=== PATIENT | male | born 1980 | race Caucasian/White ===

== ENCOUNTER 2016-11-04 22:10 | Emergency (ER) | payer BC ==
[2016-11-04 22:25] VITALS: BP 136/92
--- NOTE | 2016-11-05 12:44 | EKG REPORT ---
SEVERITY:- NORMAL ECG - SINUS RHYTHM : Confirmed by: Iwona Reza MD 05-Nov-2016 12:43:43
== END 2016-11-04 23:52 | disposition left against medical advice (07) ==
LOC: ER 22:10
DX: Z53.9 Procedure and treatment not carried out, unspecified reason (principal); R07.9 Chest pain, unspecified
CPT/HCPCS: 93005; 93010

== ENCOUNTER 2017-07-29 19:54 | Emergency (ER) | payer BC, OTHER ==
[2017-07-29 20:36] VITALS: BP 149/97
[2017-07-29] MEDS ORDERED: ONDANSETRON HCL INJ/PF 4 MG/2 ML SDV IV ONE (21:04)
[2017-07-29] MEDS ORDERED: DICYCLOMINE HCL INJ 20 MG/2 ML AMPULE IM STA (21:04)
[2017-07-29] MEDS ORDERED: KETOROLAC TROMETHAMINE INJ/PF 30 MG/1 ML SDV IV ONE (21:04)
--- NOTE | 2017-07-29 21:07 | ER Document Report ---
ED GI/ - General Chief Complaint: Flu Symptoms Stated Complaint: FLU SYMPTOMS Time Seen by Provider: 07/29/17 20:50 Mode of Arrival: Ambulatory Information source: Patient TRAVEL OUTSIDE OF THE [place] IN LAST 30 DAYS: No - HPI Patient complains to provider of: Diarrhea, Vomiting Onset: This morning Notes: 07/29/17 21:05 The patient is here with complaints of nausea, vomiting, diarrhea that started at approximately 4:00 this morning. States that he has had too many bowel movements and vomiting episodes to count. No blood in his vomit or stool. He has had some body aches and chills. He denies any dysuria or hematuria. He denies fever. He has had prior cholecystectomy and has a history of diverticulitis. He denies any known sick contacts, travel outside the [place], recent antibiotic use. He denies any known specific bad food intake. He denies any chest pain or shortness of breath. No rash. He has occasional abdominal cramping, but denies any constant abdominal pain. Nothing makes his symptoms better or worse. He denies any other complaints. - Related Data Allergies/Adverse Reactions: Penicillins Allergy (Verified 11/17/13 11:02) Past Medical History - Social History Smoking Status: Former Smoker Chew tobacco use (# tins/day): No Frequency of alcohol use: Occasional Drug Abuse: None Family History: Reviewed & Not Pertinent Patient has suicidal ideation: No Patient has homicidal ideation: No - Past Medical History Cardiac Medical History: Reports: Hx Hypercholesterolemia, Hx Hypertension Pulmonary Medical History: Reports: Hx Asthma, Hx COPD Renal/ Medical History: Denies: Hx Peritoneal Dialysis Psychiatric Medical History: Denies: Hx Depression Past Surgical History: Reports: Hx Cholecystectomy - Immunizations Hx Diphtheria, Pertussis, Tetanus Vaccination: Yes Review of Systems - Review of Systems -: Yes All other systems reviewed and negative Physical Exam - Vital signs Vitals: Temp Pulse Resp BP Pulse Ox 98.5 F 100 16 149/97 H 97 07/29/17 20:32 07/29/17 20:32 07/29/17 20:32 07/29/17 20:32 07/29/17 20:32 - Notes Notes: GENERAL: alert, cooperative, nontoxic, no distress. HEAD: normocephalic, atraumatic EYES: conjunctiva pink without discharge, no external redness or swelling. EARS: no external swelling, no external redness NOSE: atraumatic, no external swelling MOUTH/THROAT: mucous membranes moist and pink, posterior pharynx without erythema, swelling, exudate. No trismus or drooling. NECK: soft, supple, full range of motion, no meningismus. CHEST: no distress, lungs clear and equal throughout. No wheezing, rales, rhonchi. CARDIAC: regular rate and rhythm, no murmur, normal capillary refill, normal pulses. No peripheral edema noted. ABDOMEN: Soft, nontender. No rebound tenderness or guarding. No mass. BACK: full range of motion, no CVA tenderness. EXTREMITIES: full range of motion of all extremities. No redness, no swelling. NEURO: alert and oriented x 3, no focal deficits, full range of motion of all extremities. PYSCH: appropriate mood, affect. Patient is cooperative. SKIN: pink, warm, dry, no rash. Course - Re-evaluation Re-evalutation: 07/29/17 23:52 The patient is nontoxic appearing with stable vitals. The patient has had nausea vomiting diarrhea with body aches. He has no abdominal tenderness on exam. No blood in his stool. No cough or sore throat. He was given IV fluids , Toradol, Zofran, Bentyl in the emergency department. He has had no vomiting here. Lab work is all unremarkable aside from a nonspecifically elevated white blood cell count of 16-1/2. On reexam he continues to have no abdominal tenderness. The most likely source of this is viral gastroenteritis. He did explain that if there is other possibilities and that if his pain worsens he develops focal abdominal tenderness is persistent vomiting significant high fevers or gets worse in any way that he should be reevaluated immediately for further evaluation. Due to the fact that he has no abdominal tenderness on exam at this time, I do not believe that a CT scan is required today. The patient is noted to have elevated blood pressure during today's emergency department visit. The patient was informed of this finding. The patient was instructed that this may be related to pre-hypertension and requires further evaluation with a primary care provider. The patient has no hypertensive symptoms at this time. The patient's emergency department workup and current diagnosis were explained to the patient and or family. Follow-up instructions were provided. Medications if prescribed were discussed. Instructions for when to return to the emergency department including specific worrisome symptoms were discussed with the patient and/or family. - Vital Signs Vital signs: Temp Pulse Resp BP Pulse Ox 98.5 F 100 16 149/97 H 97 07/29/17 20:32 07/29/17 20:32 07/29/17 20:32 07/29/17 20:32 07/29/17 20:32 - Laboratory Result Diagrams: 07/29/17 21:50 07/29/17 22:28 Laboratory results interpreted by me: 07/29/17 21:50 WBC 16.4 H RBC 5.61 H Hgb 17.4 H Hct 51.2 H Seg Neutrophils % 82.6 H Lymphocytes % 10.4 L Absolute Neutrophils 13.6 H Discharge - Discharge Clinical Impression: Nausea vomiting and diarrhea Condition: Stable Disposition: HOME, SELF-CARE Instructions: Diarrhea, Nonspecific ([facility]), Vomiting ([facility]), Viral Syndrome ([facility]) , Intravenous (IV) Fluids ([facility]) Additional Instructions: Take medications as prescribed. Take Tylenol and Motrin as needed for pain or fever. Follow-up if not better in 3-5 days, sooner for increasing pain, high fever, persistent vomiting, blood in his vomit or stool, or for any further concerns. He develops tenderness when pushing on his abdomen, he should be reevaluated. Your blood pressure was elevated during today's visit. Have this rechecked with your doctor. Prescriptions: Dicyclomine HCl [Bentyl 20 mg Tablet] 20 mg PO QID #20 tablet Ondansetron HCl [Zofran 4 mg Tablet] 1 - 2 tab PO Q4H PRN #10 tablet PRN Reason: Forms: Elevated Blood Pressure, Smoking Cessation Education Referrals: [facility] [Provider Group] - Follow up as needed
[2017-07-29] MEDS ORDERED: NORMAL SALINE 1000 ML 1,000 ML IV ONE (21:59)
[2017-07-29 22:09] LABS: ABSOLUTE BASOPHILS # (AUTO) 0.1 10^3/uL (0.0-0.2); ABSOLUTE EOSINOPHILS # (AUTO) 0.1 10^3/uL (0.0-0.6); ABSOLUTE LYMPHOCYTES (AUTO) 1.7 10^3/uL (0.5-4.7); ABSOLUTE MONOCYTES (AUTO) 0.9 10^3/uL (0.1-1.4); ABSOLUTE NEUT (AUTO) 13.6 10^3/uL (1.7-8.2); BASOPHILS % (AUTO) 0.7 % (0-2); EOSINOPHILS % (AUTO) 0.8 % (0-6); HEMATOCRIT 51.2 % (37.9-51.0); HEMOGLOBIN 17.4 g/dL (13.5-17.0); LYMPHOCYTES % (AUTO) 10.4 % (13-45); MEAN CORPUSCULAR HEMOGLOBIN 31.1 pg (27.0-33.4); MEAN CORPUSCULAR HGB CONC 34.1 g/dL (32.0-36.0); MEAN CORPUSCULAR VOLUME 91 fl (80-97); MONOCYTES % (AUTO) 5.5 % (3-13); PLATELET COUNT 382 10^3/uL (150-450); RED BLOOD COUNT 5.61 10^6/uL (4.35-5.55); RED CELL DISTRIBUTION WIDTH 13.5 % (11.5-14.0); SEGMENTED NEUTROPHILS % (AUTO) 82.6 % (42-78); TOTAL CELLS COUNTED % (AUTO) 100 %; WHITE BLOOD COUNT 16.4 10^3/uL (4.0-10.5)
[2017-07-29 23:05] LABS: ALANINE AMINOTRANSFERASE 58 U/L (21-72); ALBUMIN 4.4 g/dL (3.5-5.0); ALKALINE PHOSPHATASE 87 U/L (38-126); ANION GAP 13 (5-19); ASPARTATE AMINO TRANSFERASE 27 U/L (17-59); BILIRUBIN,DIRECT 0.2 mg/dL (0.0-0.4); BILIRUBIN,TOTAL 0.3 mg/dL (0.2-1.3); BLOOD UREA NITROGEN 13 mg/dL (7-20); CALCIUM 9.6 mg/dL (8.4-10.2); CARBON DIOXIDE 24 mmol/L (22-30); CHLORIDE 103 mmol/L (98-107); GLUCOSE 101 mg/dL (75-110); POTASSIUM 4.1 mmol/L (3.6-5.0); SODIUM 139.8 mmol/L (137-145); TOTAL PROTEIN 6.8 g/dL (6.3-8.2)
[2017-07-29 23:37] LABS: APPEARANCE,URINE CLEAR; BILIRUBIN,URINE NEGATIVE (NEGATIVE); COLOR,URINE YELLOW; GLUCOSE, URINE NEGATIVE (NEGATIVE); KETONES,URINE NEGATIVE (NEGATIVE); LEUKOCYTE ESTERASE,URINE NEGATIVE (NEGATIVE); NITRITE,URINE NEGATIVE (NEGATIVE); PROTEIN,URINE NEGATIVE (NEGATIVE); URINE SPECIFIC GRAVITY 1.029; UROBILINOGEN,URINE NEGATIVE mg/dL (<2.0)
== END 2017-07-30 00:07 | disposition home or self-care (01) ==
LOC: ER 19:54
DX: R11.2 Nausea with vomiting, unspecified (principal); R19.7 Diarrhea, unspecified; R10.9 Unspecified abdominal pain; R68.83 Chills (without fever); D72.829 Elevated white blood cell count, unspecified; I10 Essential (primary) hypertension; J44.9 Chronic obstructive pulmonary disease, unspecified; Z87.19 Personal history of other diseases of the digestive system; Z91.49 Other personal history of psychological trauma, not elsewhere classified; Z88.0 Allergy status to penicillin; Z87.891 Personal history of nicotine dependence
CPT/HCPCS: 99283; 96372; 96361; 96374; 96375; 36415; 83690; 85025; 80053; 81001; J0500; J1885; J2405; J7030

== ENCOUNTER 2017-09-08 18:26 | Emergency (ER) | payer OTHER ==
--- NOTE | 2017-09-08 19:46 | ER Document Report ---
ED General - General Chief Complaint: Toothache Stated Complaint: JAW PAIN Time Seen by Provider: 09/08/17 19:45 Mode of Arrival: Ambulatory Information source: Patient, Friend TRAVEL OUTSIDE OF THE [place] IN LAST 30 DAYS: No - HPI Notes: 37-year-old male presents today with complaints of right lower dental pain x 1 day, states a piece of his tooth came off. pain is 6/10, achy and throbbing with eating. denies any fevers or chills. denies cp, sob, n/v/d, blurred vision , double vision. does have a dentist appointment this upcoming Friday better with advil, worse with eating hard foods. reports cold sensitivity. Non- smoker. no throat swelling and difficulty tolerating secretions. Denies fevers , chills, chest pain,palpitations, shortness of breath, dyspnea, nausea, vomiting, diarrhea, abdominal pain, hematuria,blurred vision, double vision, loss of vision, speech changes, LH, dizziness, syncope, headaches, wheezing, ST , URI, neck pain, weakness, bowel or bladder dysfunction, saddle anesthesia, numbness or tingling in bilateral upper or lower extremities equally, muscle paralysis, weakness in bilateral upper or lower extremities equally or rash. Denies IV drug use. - Related Data Allergies/Adverse Reactions: Penicillins Allergy (Verified 11/17/13 11:02) Past Medical History - General Information source: Patient - Social History Smoking Status: Never Smoker Family History: Reviewed & Not Pertinent - Past Medical History Cardiac Medical History: Reports: Hx Hypercholesterolemia, Hx Hypertension Pulmonary Medical History: Reports: Hx Asthma, Hx COPD Renal/ Medical History: Denies: Hx Peritoneal Dialysis Psychiatric Medical History: Denies: Hx Depression Past Surgical History: Reports: Hx Cholecystectomy - Immunizations Hx Diphtheria, Pertussis, Tetanus Vaccination: Yes Review of Systems - Review of Systems Constitutional: No symptoms reported EENT: See HPI Cardiovascular: No symptoms reported Respiratory: No symptoms reported Gastrointestinal: No symptoms reported Genitourinary: No symptoms reported Male Genitourinary: No symptoms reported Musculoskeletal: No symptoms reported Skin: No symptoms reported Hematologic/Lymphatic: No symptoms reported Neurological/Psychological: No symptoms reported Physical Exam - Vital signs Vitals: Temp Pulse Resp BP Pulse Ox 97.6 F 61 16 156/97 H 96 09/08/17 18:52 09/08/17 18:52 09/08/17 18:52 09/08/17 18:52 09/08/17 18:52 - Notes Notes: PHYSICAL EXAMINATION: GENERAL: Well-appearing, well-nourished and in no acute distress. HEAD: Atraumatic, normocephalic. EYES: Pupils equal round and reactive to light, extraocular movements intact, sclera anicteric, conjunctiva are normal. ENT: Nares patent, oropharynx clear without exudates. Moist mucous membranes. # 26 gingiva with swelling, erythema and~ induration. No drainage or open wounds. No fluctuance. No facial swelling. Poor oral dentition, right lower jaw with extensive dental caries, no definite swelling or effusion. NECK: Normal range of motion, supple without lymphadenopathy LUNGS: Breath sounds clear to auscultation bilaterally and equal. No wheezes rales or rhonchi. HEART: Regular rate and rhythm without murmurs ABDOMEN: Soft, nontender, nondistended abdomen. No guarding, no rebound. No masses appreciated. Musculoskeletal: Normal range of motion, no pitting or edema. No cyanosis. NEUROLOGICAL: Cranial nerves grossly intact. Normal speech, normal gait. Normal sensory, motor exams PSYCH: Normal mood, normal affect. SKIN: Warm, Dry, normal turgor, no rashes or lesions noted. Course - Re-evaluation Re-evalutation: 09/08/17 19:59 Healthy, afebrile male was vital signs are stable is here for evaluation for toothache. We will give him Toradol IM now for pain, will start him on oral clindamycin for infection, patient does have a dental appointment this Friday Warm compress to face 20 minutes on 20 minutes off several times a day. Take meloxicam as directed daily with food, do not take any other NSAIDs while taking meloxicam. At this time will discharge with return precautions and follow-up recommendations. Verbal discharge instructions given a the bedside and opportunity for questions given. Medication warnings reviewed. Patient is in agreement with this plan and has verbalized understanding of return precautions and the need for primary care follow-up in the next 24-72 hours. After performing a Medical Screening Examination, I estimate there is LOW risk for a DEEP SPACE INFECTION (e.g., COREEN'S ANGINA OR RETROPHARYNGEAL ABSCESS), MENINGITIS, INTRACRANIAL HEMORRHAGE, or AIRWAY COMPROMISE, thus I consider the discharge disposition reasonable. Also, there is no evidence or peritonitis, sepsis, or toxicity. I have reevaluated this patient multiple times and no significant life threatening changes are noted. The patient and I have discussed the diagnosis and risks, and we agree with discharging home with close follow-up with the understanding that symptoms and presentations can change. We also discussed returning to the Emergency Department immediately if new or worsening symptoms occur. We have discussed the symptoms which are most concerning (e.g., changing or worsening pain, trouble swallowing or breathing, neck stiffness or fever) that necessitate immediate return. - Vital Signs Vital signs: Temp Pulse Resp BP Pulse Ox 97.6 F 61 16 156/97 H 96 09/08/17 18:52 09/08/17 18:52 09/08/17 18:52 09/08/17 18:52 09/08/17 18:52 Discharge - Discharge Clinical Impression: Dental caries Condition: Good Disposition: HOME, SELF-CARE Instructions: [facility], Clindamycin ([facility]), Toothache ([facility]), Dentist Prescriptions: Clindamycin HCl 300 mg PO Q6H #28 capsule Meloxicam 7.5 mg PO DAILY #5 tablet Referrals: KJ ZULETA MD [ACTIVE STAFF] - Follow up as needed
[2017-09-08] MEDS ORDERED: CLINDAMYCIN HCL 150 MG CAPSULE PO ONE (19:55)
[2017-09-08] MEDS ORDERED: KETOROLAC TROMETHAMINE 60 MG/2 ML SDV IM ONE (19:55)
[2017-09-08 20:25] VITALS: BP 149/83
== END 2017-09-08 20:32 | disposition home or self-care (01) ==
LOC: ER 18:26
DX: K02.9 Dental caries, unspecified (principal); K08.89 Other specified disorders of teeth and supporting structures; I10 Essential (primary) hypertension; J44.9 Chronic obstructive pulmonary disease, unspecified; Z88.0 Allergy status to penicillin
CPT/HCPCS: 99282; 96372; J1885

== ENCOUNTER 2018-06-11 17:49 | Emergency (ER) | payer OTHER ==
--- NOTE | 2018-06-11 20:05 | ER Document Report ---
ED Medical Screen (RME) - General Chief Complaint: Chest Pain Stated Complaint: CHEST PAIN Time Seen by Provider: 06/11/18 19:53 Mode of Arrival: Ambulatory Information source: Patient Notes: This is a 37-year-old man with a recent stress test showing fixed defect. Patient was recently placed on isosorbide, alprazolam (for anxiety) and aspirin. Patient states he was usual state of health today when he took his first dose of isosorbide. Patient states that since that time, he is not felt right. He complains of weakness, sharp chest pain, chills. He denies any sick contacts. This is the first time he took the medicine. He denies any Cialis/Viagra like medicines. TRAVEL OUTSIDE OF THE [place] IN LAST 30 DAYS: No - Related Data Allergies/Adverse Reactions: Penicillins Allergy (Verified 06/11/18 19:53) Past Medical History - Past Medical History Cardiac Medical History: Reports: Hx Hypercholesterolemia, Hx Hypertension Pulmonary Medical History: Reports: Hx Asthma, Hx COPD Renal/ Medical History: Denies: Hx Peritoneal Dialysis Psychiatric Medical History: Denies: Hx Depression Past Surgical History: Reports: Hx Cholecystectomy - Immunizations Hx Diphtheria, Pertussis, Tetanus Vaccination: Yes Physical Exam - Vital signs Vitals: Temp Pulse Resp BP Pulse Ox 99.8 F 102 H 17 132/81 H 97 06/11/18 18:15 06/11/18 18:15 06/11/18 18:15 06/11/18 18:15 06/11/18 18:15 Course - Vital Signs Vital signs: Temp Pulse Resp BP Pulse Ox 99.8 F 102 H 17 132/81 H 97 06/11/18 18:15 06/11/18 18:15 06/11/18 18:15 06/11/18 18:15 06/11/18 18:15
--- NOTE | 2018-06-11 20:29 | RADIOLOGY REPORT (SQ) ---
EXAM DESCRIPTION: XR CHEST 2 VIEWS COMPLETED DATE/TME: 06/11/2018 20:03 CLINICAL HISTORY: 37 years, Male, cp Compared to 09/01/2015. FINDINGS: The heart is not enlarged. No consolidation or pleural effusion. No pulmonary edema or pneumothorax. IMPRESSION: No acute disease.
[2018-06-11 20:51] LABS: HEMATOCRIT 48.5 % (37.9-51.0); HEMOGLOBIN 16.8 g/dL (13.5-17.0); MEAN CORPUSCULAR HEMOGLOBIN 31.2 pg (27.0-33.4); MEAN CORPUSCULAR HGB CONC 34.7 g/dL (32.0-36.0); MEAN CORPUSCULAR VOLUME 90 fl (80-97); PLATELET COUNT 382 10^3/uL (150-450); RED BLOOD COUNT 5.39 10^6/uL (4.35-5.55); RED CELL DISTRIBUTION WIDTH 13.5 % (11.5-14.0)
[2018-06-11 20:55] LABS: A TYPE INFLUENZA AG NEGATIVE (NEGATIVE); ALANINE AMINOTRANSFERASE 35 U/L (21-72); ALBUMIN 4.6 g/dL (3.5-5.0); ALKALINE PHOSPHATASE 98 U/L (38-126); ANION GAP 11 (5-19); ASPARTATE AMINO TRANSFERASE 20 U/L (17-59); B INFLUENZA AG NEGATIVE (NEGATIVE); BILIRUBIN,DIRECT 0.3 mg/dL (0.0-0.4); BILIRUBIN,TOTAL 0.7 mg/dL (0.2-1.3); BLOOD UREA NITROGEN 9 mg/dL (7-20); CALCIUM 9.9 mg/dL (8.4-10.2); CARBON DIOXIDE 25 mmol/L (22-30); CHLORIDE 103 mmol/L (98-107); CREATINE KINASE 60 U/L (55-170); GLUCOSE 102 mg/dL (75-110); POTASSIUM 4.2 mmol/L (3.6-5.0); SODIUM 139.3 mmol/L (137-145); TOTAL PROTEIN 7.5 g/dL (6.3-8.2)
[2018-06-11 21:07] LABS: ABSOLUTE LYMPHOCYTES# (MANUAL) 3.5 10^3/uL (0.5-4.7); ABSOLUTE MONOCYTES # (MANUAL) 1.8 10^3/uL (0.1-1.4); ABSOLUTE NEUTROPHILS# (MANUAL) 16.7 10^3/uL (1.7-8.2); BASOPHILS % (MANUAL) 0 % (0-2); EOSINOPHILS % (MANUAL) 0 % (0-6); LYMPHOCYTES % (MANUAL) 15 % (13-45); MONOCYTES % (MANUAL) 8 % (3-13); SEGMENTED NEUTROPHILS % (MAN) 76 % (42-78); TOTAL CELLS COUNTED 100
[2018-06-11 21:08] LABS: CREATINE KINASE MB 0.24 ng/mL (<4.55)
--- NOTE | 2018-06-11 21:09 | EKG REPORT ---
SEVERITY:- NORMAL ECG - SINUS RHYTHM : Confirmed by: Iwona Reza MD 11-Jun-2018 21:08:28
[2018-06-11 21:14] LABS: OVALOCYTES SLIGHT; PLATELET COMMENT ADEQUATE; PLATELET LARGE PRESENT; POIKILOCYTOSIS SLIGHT; TOXIC GRANULATION SLIGHT; TROPONIN I < 0.012 ng/mL
[2018-06-11] MEDS ORDERED: NORMAL SALINE 1000 ML 1,000 ML IV ONE (22:25)
[2018-06-11] MEDS ORDERED: KETOROLAC TROMETHAMINE INJ/PF 30 MG/1 ML SDV IV ONE (22:26)
[2018-06-11] MEDS ORDERED: ACETAMINOPHEN 325 MG TABLET PO ONE (22:26)
[2018-06-11] MEDS ORDERED: METOCLOPRAMIDE HCL INJ/PF 10 MG/2 ML SDV IV ONE (22:26)
--- NOTE | 2018-06-11 22:29 | ER Document Report ---
ED General - General Chief Complaint: Chest Pain Stated Complaint: CHEST PAIN Time Seen by Provider: 06/11/18 19:53 Primary Care Provider: TONY CRONIN MD [Primary Care Provider] - Follow up tomorrow Mode of Arrival: Ambulatory Notes: Patient is a 37-year-old male without chronic medical problems presents complaining of acute onset of body aches, chest discomfort, headache and feeling generally unwell. Patient states that his symptoms started 1 hour after taking a dose of isosorbide mononitrate. He states that he was unaware that he had a fever until presented to the emergency department. Since onset of his symptoms nothing is improved or worsen his symptoms. No known sick contacts. Has not seen his general physician regarding today's concerns. Denies any history of similar symptoms in the past. His body aches are described as an aching, cramping, diffuse body pain. TRAVEL OUTSIDE OF THE [place] IN LAST 30 DAYS: No - Related Data Allergies/Adverse Reactions: Penicillins Allergy (Verified 06/11/18 19:53) Past Medical History - General Information source: Patient - Social History Smoking Status: Former Smoker Frequency of alcohol use: None Drug Abuse: None Lives with: Spouse/Significant other Family History: Reviewed & Not Pertinent Patient has suicidal ideation: No Patient has homicidal ideation: No - Past Medical History Cardiac Medical History: Reports: Hx Hypercholesterolemia, Hx Hypertension Pulmonary Medical History: Reports: Hx Asthma, Hx COPD Renal/ Medical History: Denies: Hx Peritoneal Dialysis Psychiatric Medical History: Denies: Hx Depression Past Surgical History: Reports: Hx Cholecystectomy - Immunizations Hx Diphtheria, Pertussis, Tetanus Vaccination: Yes Review of Systems - Review of Systems Notes: Constitutional: Positive for fever. HENT: Negative for sore throat. Eyes: Negative for visual changes. Cardiovascular: Negative for chest pain. Respiratory: Negative for shortness of breath. Gastrointestinal: Negative for abdominal pain, vomiting or diarrhea. Genitourinary: Positive for dysuria. Musculoskeletal: Negative for back pain. Skin: Negative for rash. Neurological: Positive for headache 10 point ROS negative except as marked above and in HPI. Physical Exam - Vital signs Vitals: Temp Pulse Resp BP Pulse Ox 99.8 F 102 H 17 132/81 H 97 06/11/18 18:15 06/11/18 18:15 06/11/18 18:15 06/11/18 18:15 06/11/18 18:15 Interpretation: Tachycardic Notes: PHYSICAL EXAMINATION: GENERAL: Appears mildly unwell but in no acute distress HEAD: Atraumatic, normocephalic. EYES: Pupils equal round and reactive to light, extraocular movements intact, sclera anicteric, conjunctiva are normal. ENT: nares patent, oropharynx clear without exudates. Moderately dry mucous membranes. NECK: Normal range of motion, no meningismus, supple without lymphadenopathy LUNGS: Breath sounds clear to auscultation bilaterally and equal. No wheezes rales or rhonchi. HEART: Regular tachycardia without murmurs ABDOMEN: Soft, nontender, normoactive bowel sounds. No guarding, no rebound. No masses appreciated. EXTREMITIES: Normal range of motion, no pitting or edema. No cyanosis. NEUROLOGICAL: No focal neurological deficits. Moves all extremities spontaneously and on command. PSYCH: Normal mood, normal affect. SKIN: Warm, Dry, normal turgor, no rashes or lesions noted. Course - Re-evaluation Re-evalutation: 06/11/18 22:26 Patient presents with an acute onset of body aches, chest discomfort, headache, and feeling generally unwell at home consistent with a flulike illness although our flu test here is negative. Patient has not started having a mild cough since being here in the emergency department. Chest patient likewise denies any urinary symptoms. Chest x-ray is clear without any evidence of an acute pneumonia. Urinalysis without any evidence of a pyelonephritis but does show pyuria and trace bacteria. Patient does not have any focal abdominal tenderness to suggest an acute biliary pathology, acute appendicitis, acute mesenteric ischemia, bowel obstruction, bowel, or any other life-threatening acute intra- abdominal pathology as the etiology of the fever and additional symptoms today. Patient does complain of a headache. Although I have a low clinical suspicion for an acute onset bacterial meningitis cannot be entirely excluded in this setting particular given leukocytosis without lumbar puncture. I have advised the patient as well as his at the bedside of this concern. I have reviewed with him that the likelihood of bacterial meningitis is low but not 0% and the only way that we could really exclude this diagnosis is with a lumbar puncture. The patient has currently deferred this procedure and states that he would like to wait and see how he feels until he has received medications to reduce his fever. 06/12/18 00:21 The patient states that he feels markedly improved after receiving IV fluids. His heart rate has normalized, currently 89. He denies any current headache. Bedside echocardiogram without any evidence of pericardial effusion. I have again had a risks and benefits conversation with the patient and his about proceeding forward with a lumbar puncture. We have again reviewed that although the probability of an acute bacterial meningitis or viral encephalitis is quite low it is not 0% and we cannot definitively exclude this without obtaining a lumbar puncture. We did review the possible risks of the procedure including bleeding, infection, post lumbar puncture headache. He also reviewed that failure to diagnose or delayed diagnosis of a CLINICAL ASSESSMENT MANAGER infection could result in much worse prognosis up to and including . After reviewing the risks, benefits and alternative considerations the patient and his have declined lumbar puncture. The patient has capacity. This does seem to be a reasonable decision given the absence of any symptoms currently in the overall low probability of this diagnosis. The patient will be started on antibiotics given his possible urinary tract infection and a urinalysis has been sent. At this time will discharge with return precautions and follow-up recommendations. Verbal discharge instructions given a the bedside and opportunity for questions given. Medication warnings reviewed. Patient is in agreement with this plan and has verbalized understanding of return precautions and the need for primary care follow-up in the next 24-72 hours. - Vital Signs Vital signs: Temp Pulse Resp BP Pulse Ox 98.1 F 85 18 127/60 H 99 06/12/18 02:09 06/12/18 02:09 06/12/18 02:09 06/12/18 02:09 06/12/18 02:09 - Laboratory Result Diagrams: 06/11/18 20:25 06/11/18 20:25 Laboratory results interpreted by me: 06/11/18 06/11/18 20:25 21:16 WBC 22.0 H Abs Neuts (Manual) 16.7 H Abs Monocytes (Manual) 1.8 H Ur Leukocyte Esterase TRACE H - Diagnostic Test Radiology reviewed: Image reviewed, Reports reviewed Radiology results interpreted by me: 06/11/18 22:29 Chest x-ray: No acute infiltrate or pneumothorax Discharge - Discharge Clinical Impression: Generalized body aches Elevated WBC count Qualifiers: Leukocytosis type: unspecified Qualified Code(s): D72.829 - Elevated white blood cell count, unspecified Fever Qualifiers: Fever type: unspecified Qualified Code(s): R50.9 - Fever, unspecified Urinary tract infection Qualifiers: Urinary tract infection type: acute pyelonephritis Qualified Code(s): N10 - Acute pyelonephritis Condition: Good Disposition: HOME, SELF-CARE Additional Instructions: You have been diagnosed with a condition called pyelonephritis which is an infection involving your kidneys and bladder. You have been given a dose of antibiotics here in the emergency department to help begin to treat this infection. Your also being sent home on antibiotics. Please start taking these later on today when you fill the prescription. Complete the course even if you feel better. Please return if you have persistent vomiting, pass out, have worsening pain, become unable to tolerate fluids, or have any other symptoms [place] t are concerning to you. Please follow-up with your primary care physician in the next 24-48 hours. Prescriptions: Cephalexin Monohydrate [Keflex 500 mg Capsule] 500 mg PO Q6H 7 Days capsule Referrals: TONY CRONIN MD [Primary Care Provider] - Follow up tomorrow
[2018-06-12 00:29] VITALS: BP 127/60
[2018-06-12 00:40] LABS: APPEARANCE,URINE CLEAR; BILIRUBIN,URINE NEGATIVE (NEGATIVE); COLOR,URINE YELLOW; GLUCOSE, URINE NEGATIVE (NEGATIVE); KETONES,URINE NEGATIVE (NEGATIVE); LEUKOCYTE ESTERASE,URINE TRACE (NEGATIVE); NITRITE,URINE NEGATIVE (NEGATIVE); PROTEIN,URINE NEGATIVE (NEGATIVE); URINE SPECIFIC GRAVITY 1.018; UROBILINOGEN,URINE NEGATIVE mg/dL (<2.0)
[2018-06-12] MEDS ORDERED: CEFTRIAXONE INJ 1000 MG VIAL IV ONE (00:57)
[2018-06-12] MEDS ORDERED: LIDOCAINE 1% INJ-PF (10 MG/ML) 30 ML SDV ONE (01:58)
== END 2018-06-12 02:10 | disposition home or self-care (01) ==
LOC: ER 17:49
DX: M79.10 Myalgia, unspecified site (principal); D72.829 Elevated white blood cell count, unspecified; R50.9 Fever, unspecified; R07.9 Chest pain, unspecified; R51 Headache; R30.0 Dysuria; Z87.891 Personal history of nicotine dependence; I10 Essential (primary) hypertension; J44.9 Chronic obstructive pulmonary disease, unspecified
CPT/HCPCS: 93005; 99285; 36415; 87040; 87086; 82553; 82550; 85025; 87088; 80053; 81001; 84484; 87186; 87804; 71046; 93010; J3490; J1885; J2765; J0696; J7030

== ENCOUNTER 2020-06-12 17:00 | Emergency (ER) | payer BC, OTHER ==
[2020-06-12] MEDS ORDERED: NORMAL SALINE 1000 ML 1,000 ML IV ONE (17:06)
[2020-06-12] MEDS ORDERED: ONDANSETRON HCL INJ/PF 4 MG/2 ML SDV IV ONE (17:08)
[2020-06-12] MEDS ORDERED: HYDROMORPHONE HCL INJ/PF 2 MG/ML AMPULE IV ONE (17:08)
--- NOTE | 2020-06-12 17:24 | ER Document Report ---
ED General - General Chief Complaint: Crush Injury Stated Complaint: CRUSH INJURY Time Seen by Provider: 06/12/20 17:01 Primary Care Provider: TONY CRONIN MD [NO LOCAL MD] - Follow up as needed TRAVEL OUTSIDE OF THE [place] IN LAST 30 DAYS: No - HPI Notes: Patient is a 39-year-old male who presents to the emergency department for evaluation. He was at work when a car fell on top of him. He complains of pain in his right arm and right chest/abdomen. He did not lose consciousness. He denies any neck or back pain. His pain is a 10 out of 10. The car was lifted off of him by coworkers. - Related Data Allergies/Adverse Reactions: Penicillins Allergy (Verified 06/12/20 17:52) Home Medications: Lisinopril Past Medical History - General Information source: Patient - Social History Smoking Status: Current Every Day Smoker Drug Abuse: None Family History: Reviewed & Not Pertinent - Past Medical History Cardiac Medical History: Reports: Hx Hypercholesterolemia, Hx Hypertension Pulmonary Medical History: Reports: Hx Asthma, Hx COPD Renal/ Medical History: Denies: Hx Peritoneal Dialysis Psychiatric Medical History: Denies: Hx Depression Past Surgical History: Reports: Hx Cholecystectomy - Immunizations Hx Diphtheria, Pertussis, Tetanus Vaccination: Yes Review of Systems - Review of Systems Constitutional: No symptoms reported EENT: No symptoms reported Cardiovascular: See HPI Respiratory: No symptoms reported Gastrointestinal: See HPI Genitourinary: No symptoms reported Musculoskeletal: See HPI Skin: No symptoms reported Neurological/Psychological: No symptoms reported Physical Exam - Vital signs Vitals: Resp Pulse Ox 12 97 06/12/20 17:01 06/12/20 17:01 - Notes Notes: Vital signs reviewed, please refer to chart. Head is normocephalic, atraumatic. Pupils equal round, reactive to light. Nares are patent without septal hematoma. No facial bone tenderness, no orbital stepoff. Oral mucosa is moist. Uvula is midline. Examination of the spine yields no midline tenderness or step-off. No paraspinal musculature tenderness is appreciated. Heart is regular rate and rhythm. Lungs are clear to auscultation bilaterally. Chest wall excursion is equal, chest is minimally tender over the right 10th, 11th, 12th ribs without subcutaneous emphysema. Abdomen is tender in the right left upper quadrants with some guarding, no rebound, normoactive bowel sounds throughout. Extremities without cyanosis, clubbing. Posterior calves are nontender. Peripheral pulses are equal. Skin is warm and dry. Patient is awake, alert, oriented x3. Cranial nerves II - XII are grossly intact without focal neurological deficits. Strength is plus 5 out of 5 bilateral upper and lower extremities. Sensation is intact. Reflexes symmetrical. Examination of the right upper extremity yields an a small abrasion with some minimal caliber to the right posterior arm. Patient refuses any range of motion at the shoulder, elbow, wrist, fingers, thumb. Radial pulse 2+, capillary refill is brisk, sensation is intact of the right upper extremity. Course - Re-evaluation Re-evalutation: 06/12/20 17:24 Patient presents to the emergency department for evaluation. He was initially seen as a trauma. Because I am concerned about the possibility of an intrathoracic or intra-abdominal injury that may be life-threatening, decision was made to forego creatinine and send the patient for CT is soon as possible. Blood work, IV fluids, pain medication ordered. He is currently stable, we will continue to monitor. 06/12/20 18:15 Patient had some relief from the Dilaudid but it was temporary. I ordered fe ntanyl. Patient's imaging is unremarkable. Serial abdominal exams are tender but he continues to have no rebound, negative heel tap. He was notified of results. 06/12/20 19:32 Patient notified of mildly elevated liver enzymes and need for follow-up. This is likely secondary to trauma, but should be rechecked. - Vital Signs Vital signs: Temp Pulse Resp BP Pulse Ox 19 139/80 H 97 06/12/20 19:01 06/12/20 19:01 06/12/20 19:01 - Laboratory Results Result Diagrams: 06/12/20 17:13 06/12/20 18:59 Laboratory Results Interpreted: 06/12/20 06/12/20 06/12/20 17:13 18:53 18:59 WBC 13.7 H Absolute Neuts (auto) 9.6 H AST 60 H ALT 90 H Urine Ascorbic Acid 40 H Critical Laboratory Results Reviewed: No Critical Results - Radiology Results Radiology Results Interpreted: 06/12/20 18:[address] 06/12/20 17:07 IMPRESSION: NORMAL CT OF THE CHEST WITH IV CONTRAST. Abdomen/Pelvis CT 06/12/20 17:08 IMPRESSION: NO SIGNIFICANT OR ACUTE FINDING IN THE ABDOMEN OR PELVIS ON CT SCAN WITH IV CONTRAST. Humerus X-Ray 06/12/20 17:08 IMPRESSION: NEGATIVE STUDY OF THE RIGHT HUMERUS. NO RADIOGRAPHIC EVIDENCE OF ACUTE INJURY. Forearm X-Ray 06/12/20 17:09 IMPRESSION: NEGATIVE STUDY OF THE RIGHT FOREARM. NO RADIOGRAPHIC EVIDENCE OF ACUTE INJURY. Wrist X-Ray 06/12/20 17:09 IMPRESSION: NEGATIVE STUDY OF THE RIGHT WRIST. NO RADIOGRAPHIC EVIDENCE OF ACUTE INJURY. Critical Radiology Results Reviewed: No Critical Results Discharge - Discharge Clinical Impression: Elevated liver enzymes Crush injury arm Qualifiers: Encounter type: initial encounter Laterality: right Qualified Code(s): S47.1XXA - Crushing injury of right shoulder and upper arm, initial encounter Blunt chest trauma Qualifiers: Encounter type: initial encounter Qualified Code(s): S29.8XXA - Other specified injuries of thorax, initial encounter Blunt abdominal trauma Qualifiers: Encounter type: initial encounter Qualified Code(s): S39.91XA - Unspecified injury of abdomen, initial encounter Condition: Stable Disposition: HOME, SELF-CARE Instructions: Crush Injury ([facility]) Additional Instructions: No abnormalities were found on your trays, or CT scans of your chest and abdomen. There is a very mild elevation in your liver enzymes. This is likely benign, but should be rechecked by your primary care provider. Take [place] as needed for severe pain. Please watch for dizziness, drowsiness, constipation with this medication. Follow-up with your primary care provider this week. If you develop worsening or new concerning symptoms of any sort, please return immediately to the emergency department for evaluation. As noted, initial x-rays may be negative, but subtle fractures can still be present and missed. If your symptoms persist you should have repeat x-rays in 10 days to 2 weeks. Referrals: TONY CRONIN MD [NO LOCAL MD] - Follow up as needed
[2020-06-12 17:28] LABS: ABSOLUTE BASOPHILS # (AUTO) 0.1 10^3/uL (0.0-0.2); ABSOLUTE EOSINOPHILS # (AUTO) 0.3 10^3/uL (0.0-0.6); ABSOLUTE LYMPHOCYTES (AUTO) 2.9 10^3/uL (0.5-4.7); ABSOLUTE MONOCYTES (AUTO) 0.8 10^3/uL (0.1-1.4); ABSOLUTE NEUT (AUTO) 9.6 10^3/uL (1.7-8.2); HEMATOCRIT 46.1 % (37.9-51.0); HEMOGLOBIN 15.9 g/dL (13.5-17.0); LYMPHOCYTES % (AUTO) 21.1 % (13-45); MEAN CORPUSCULAR HEMOGLOBIN 30.9 pg (27.0-33.4); MEAN CORPUSCULAR HGB CONC 34.4 g/dL (32.0-36.0); MEAN CORPUSCULAR VOLUME 90 fl (80-97); MONOCYTES % (AUTO) 5.5 % (3-13); PLATELET COUNT 361 10^3/uL (150-450); RED BLOOD COUNT 5.13 10^6/uL (4.35-5.55); RED CELL DISTRIBUTION WIDTH 13.7 % (11.5-14.0); SEGMENTED NEUTROPHILS % (AUTO) 70.4 % (42-78); TOTAL CELLS COUNTED % (AUTO) 100 %; WHITE BLOOD COUNT 13.7 10^3/uL (4.0-10.5)
[2020-06-12 17:40] LABS: INTERNATIONAL RATION (INR) 0.83; PROTHROMBIN TIME 11.6 SEC (11.4-15.4)
[2020-06-12 17:41] LABS: PARTIAL THROMBOPLASTIN TIME 26.4 SEC (23.5-35.8)
--- NOTE | 2020-06-12 17:56 | RADIOLOGY REPORT (SQ) ---
EXAM DESCRIPTION: CT CHEST WITH IMAGES COMPLETED DATE/TIME: 06/12/2020 5:41 pm REASON FOR STUDY: crush injury COMPARISON: None. TECHNIQUE: CT scan of the chest performed using helical scanning technique with dynamic intravenous contrast injection. Images reviewed with lung, soft tissue and bone windows. Reconstructed coronal and sagittal MPR and MIP images reviewed. All images stored on PACS. All CT scanners at this facility use dose modulation, iterative reconstruction, and/or weight based d osing when appropriate to reduce radiation dose to as low as reasonably achievable (ALARA). [facility]: Dose Right [facility]: CareDose [facility]: Dose Right [facility]: Teradose 4D [facility]: [employer] CONTRAST TYPE AND DOSE: 99 mL Omnipaque 350- low osmolar. RENAL FUNCTION: Testing waived by the emergency room physician. RADIATION DOSE: CT Rad equipment meets quality standard of care and radiation dose reduction techniq ues were employed. CTDIvol: 24.5 - 26.5 mGy. DLP: 2515 mGy-cm. . LIMITATIONS: None. FINDINGS: LUNGS AND PLEURA: No pneumothorax. No infiltrate or effusion. HILAR AND MEDIASTINAL STRUCTURES: No identified masses or abnormal nodes. HEART AND VASCULAR STRUCTURES: No aneurysm or dissection. No central pulmonary emboli. No pericardi al effusion. HARDWARE: None in the chest. UPPER ABDOMEN: See separate report of the CT of the abdomen. THYROID AND OTHER SOFT TISSUES: No masses. No adenopathy. BONES: No significant finding. OTHER: No other significant finding. IMPRESSION: NORMAL CT OF THE CHEST WITH IV CONTRAST. TECHNICAL DOCUMENTATION: JOB ID: [id number] Quality ID # [id number]: Final reports with documentation of one or more dose reduction techniques (e.g., Au tomated exposure control, adjustment of the mA and/or kV according to patient size, use of iterative reconstruction technique) 2010 [employer]- All Rights Reserved Reading location - IP/workstation name: [email or web address]
--- NOTE | 2020-06-12 18:03 | RADIOLOGY REPORT (SQ) ---
EXAM DESCRIPTION: CT ABD/PELVIS WITH IV ONLY IMAGES COMPLETED DATE/TIME: 06/12/2020 5:41 pm REASON FOR STUDY: crush injury COMPARISON: 2014 TECHNIQUE: CT scan of the abdomen and pelvis performed using helical scanning technique with dynamic intravenous contrast injection. No oral contrast. Images reviewed with lung, soft tissue, and bone windows. Reconstructed coronal and sagittal MPR images reviewed. Delayed images were not acquired. Al l images stored on PACS. All CT scanners at this facility use dose modulation, iterative reconstruction, and/or weight based d osing when appropriate to reduce radiation dose to as low as reasonably achievable (ALARA). [facility]: Dose Right [facility]: CareDose [facility]: Dose Right [facility]: Teradose 4D [facility]: Purewine CONTRAST TYPE AND DOSE: contrast/concentration: Isovue 350.00 mmol/ml; Total Contrast Delivered: 99. 0 ml; Total Saline Delivered: 55.7 ml RENAL FUNCTION: Testing waived by the emergency room physician. RADIATION DOSE: . LIMITATIONS: None. FINDINGS: LOWER CHEST: See separate report of the CT of the chest. LIVER: Normal size. No masses. No dilated ducts. SPLEEN: Normal size. No focal lesions. PANCREAS: No masses. No significant calcifications. No adjacent inflammation or peripancreatic fluid collections. Pancreatic duct not dilated. GALLBLADDER: Surgically absent. ADRENAL GLANDS: No significant masses or asymmetry. RIGHT KIDNEY AND URETER: No solid masses. No significant calcifications. No hydronephrosis or hyd roureter. LEFT KIDNEY AND URETER: No solid masses. No significant calcifications. No hydronephrosis or hydr oureter. AORTA AND VESSELS: No aneurysm. No dissection. Renal arteries, SMA, celiac without stenosis. RETROPERITONEUM: No retroperitoneal adenopathy, hemorrhage or masses. BOWEL AND PERITONEAL CAVITY: No masses or inflammatory changes. No free fluid or peritoneal masses. APPENDIX: Normal. PELVIS: No mass. No free fluid. Normal bladder. ABDOMINAL WALL: No masses. No hernias. BONES: No significant or acute findings. OTHER: No other significant finding. IMPRESSION: NO SIGNIFICANT OR ACUTE FINDING IN THE ABDOMEN OR PELVIS ON CT SCAN WITH IV CONTRAST. TECHNICAL DOCUMENTATION: JOB ID: [id number] Quality ID # [id number]: Final reports with documentation of one or more dose reduction techniques (e.g., Au tomated exposure control, adjustment of the mA and/or kV according to patient size, use of iterative reconstruction technique) 2010 [employer]- All Rights Reserved Reading location - IP/workstation name: [email or web address]
--- NOTE | 2020-06-12 18:04 | RADIOLOGY REPORT (SQ) ---
EXAM DESCRIPTION: WRIST RIGHT 3 VIEWS IMAGES COMPLETED DATE/TIME: 06/12/2020 5:46 pm REASON FOR STUDY: Injury COMPARISON: None. NUMBER OF VIEWS: Three views. TECHNIQUE: AP, lateral, and oblique radiographic images acquired of the right wrist. LIMITATIONS: None. FINDINGS: MINERALIZATION: Normal. BONES: No acute fracture or dislocation. No worrisome bone lesions. Normal alignment. SOFT TISSUES: No soft tissue swelling. No foreign body. OTHER: No other significant finding. IMPRESSION: NEGATIVE STUDY OF THE RIGHT WRIST. NO RADIOGRAPHIC EVIDENCE OF ACUTE INJURY. TECHNICAL DOCUMENTATION: JOB ID: [id number] 2010 [employer]- All Rights Reserved Reading location - IP/workstation name: [email or web address]
--- NOTE | 2020-06-12 18:05 | RADIOLOGY REPORT (SQ) ---
EXAM DESCRIPTION: FOREARM RIGHT IMAGES COMPLETED DATE/TIME: 06/12/2020 5:46 pm REASON FOR STUDY: Injury COMPARISON: None. NUMBER OF VIEWS: Two views. TECHNIQUE: Two radiographic images acquired of the right forearm, including elbow and wrist in at le ast one projection. LIMITATIONS: None. FINDINGS: MINERALIZATION: Normal. BONES: No acute fracture. No worrisome bone lesions. SOFT TISSUES: No obvious swelling or foreign body. OTHER: No other significant finding. IMPRESSION: NEGATIVE STUDY OF THE RIGHT FOREARM. NO RADIOGRAPHIC EVIDENCE OF ACUTE INJURY. TECHNICAL DOCUMENTATION: JOB ID: [id number] 2010 [employer]- All Rights Reserved Reading location - IP/workstation name: [email or web address]
--- NOTE | 2020-06-12 18:06 | RADIOLOGY REPORT (SQ) ---
EXAM DESCRIPTION: HUMERUS RIGHT IMAGES COMPLETED DATE/TIME: 06/12/2020 5:46 pm REASON FOR STUDY: injury COMPARISON: None. NUMBER OF VIEWS: Two views. TECHNIQUE: Two radiographic images were acquired of the right humerus to include elbow and shoulder in at least one projection. LIMITATIONS: None. FINDINGS: MINERALIZATION: Normal. BONES: No acute fracture or dislocation. No worrisome bone lesions. SOFT TISSUES: No obvious swelling or foreign body. OTHER: No other significant finding. IMPRESSION: NEGATIVE STUDY OF THE RIGHT HUMERUS. NO RADIOGRAPHIC EVIDENCE OF ACUTE INJURY. TECHNICAL DOCUMENTATION: JOB ID: [id number] 2010 [employer]- All Rights Reserved Reading location - IP/workstation name: [email or web address]
[2020-06-12] MEDS ORDERED: FENTANYL CITRATE INJ/PF 100 MCG/2 ML AMPUL IV ONE (18:12)
[2020-06-12 19:07] VITALS: BP 139/80
[2020-06-12 19:11] LABS: APPEARANCE,URINE CLEAR; BILIRUBIN,URINE NEGATIVE (NEGATIVE); COLOR,URINE YELLOW; GLUCOSE, URINE NEGATIVE (NEGATIVE); KETONES,URINE NEGATIVE (NEGATIVE); LEUKOCYTE ESTERASE,URINE NEGATIVE (NEGATIVE); NITRITE,URINE NEGATIVE (NEGATIVE); PROTEIN,URINE NEGATIVE (NEGATIVE); UROBILINOGEN,URINE NEGATIVE mg/dL (<2.0)
[2020-06-12 19:27] LABS: ALBUMIN 3.7 g/dL (3.5-5.0); ALKALINE PHOSPHATASE 125 U/L (38-126); ANION GAP 8 (5-19); ASPARTATE AMINO TRANSFERASE 60 U/L (17-59); BILIRUBIN,DIRECT 0.3 mg/dL (0.0-0.4); BILIRUBIN,TOTAL 0.4 mg/dL (0.2-1.3); BLOOD UREA NITROGEN 11 mg/dL (7-20); CALCIUM 8.7 mg/dL (8.4-10.2); CARBON DIOXIDE 23 mmol/L (22-30); CHLORIDE 107 mmol/L (98-107); GLUCOSE 84 mg/dL (75-110); POTASSIUM 4.4 mmol/L (3.6-5.0); TOTAL PROTEIN 6.4 g/dL (6.3-8.2)
[2020-06-12] MEDS ORDERED: HYDROCODONE/ACETAMINOPHEN 5-325 MG (6 TAB/ER DISP) PO PRN (19:33)
== END 2020-06-12 20:21 | disposition home or self-care (01) ==
LOC: ER 17:00
DX: S29.8XXA Other specified injuries of thorax, initial encounter (principal); S39.91XA Unspecified injury of abdomen, initial encounter; S47.1XXA Crushing injury of right shoulder and upper arm, initial encounter; R07.9 Chest pain, unspecified; R74.8 Abnormal levels of other serum enzymes; W23.1XXA Caught, crushed, jammed, or pinched between stationary objects, initial encounter; Y99.0 Civilian activity done for income or pay
CPT/HCPCS: 99285; 96361; 96374; 96375; 36415; 85025; 85610; 85730; 80053; 81001; 73090; 73060; 73110; 71260; 74177; J3010; J1170; J2405; J7030